=== PATIENT | male | born 1955 | race Caucasian/White ===

== ENCOUNTER 2020-08-31 16:36 | Emergency (ER) | payer OTHER, SELFPAY ==
[2020-08-31 16:46] VITALS: BP 140/76; PULSE 106; RESP 20; TEMP 36.8; O2SAT 98
--- NOTE | 2020-08-31 16:49 | ED.GENADULT ---
HPI - General Adult General Chief complaint: Extremity Problem,Nontraumatic Stated complaint: big toe pain Time Seen by Provider: 08/31/20 16:49 Source: patient and RN notes reviewed Mode of arrival: ambulatory Limitations: no limitations History of Present Illness HPI narrative: 65-year-old male presents with complaints of pain to RT great toe for the past 21 days. Pain has increased over the past 2-3 days and increases with long periods of activity. Haile says LT great toe initially had pain 2 months ago in which he has a work-up that included a Negative uric acid. No treatment. Denies injury. No swelling. Denies history of CHF, DVT, PE, or gout. Hurts to bear weight. Denies radiating pain. No numbness, tingling, or loss of mobility. Exacerbating factor applying weight. Denies inability to bear weight. Denies drainage, discoloration, or suspect foreign body. Denies fever or chills. Denies large intake of meats, seafood, or alcoholic beverages). The patient reports he have not been diagnosed with COVID-19. The patient reports he is not waiting for the results of a COVID-19 lab test. The patient reports he do not have fever, chills, weakness, or fatigue. The patient reports he do not have a new or worsening cough or shortness of breath. Denies chest pain. The patient reports he do not have any rhinorrhea, congestion, loss of taste, sore throat, nausea, vomiting, abdominal pain, and diarrhea. Tolerating po intake well. Recent traveled to [facility]. Denies concerns for COVID-19 or exposures been home with limited outdoor exposure except for essential household needs, work, and return home. At this time, patient is not suspected of having COVID-19. Some parts of this dictation were generated by voice recognition software and may contain typographical and/or grammatical inaccuracies. Related Data Home Medications Medication Instructions Recorded Confirmed canagliflozin [Invokana] 300 mg PO QAM 11/19/19 11/24/19 enalapril maleate 10 mg PO QAM 11/19/19 08/31/20 glimepiride 4 mg PO QAM 11/19/19 08/31/20 omeprazole 20 mg PO QAM 11/19/19 08/31/20 simvastatin 40 mg PO QAM 11/19/19 08/31/20 sitagliptin-metformin [Janumet XR] 1 tablet PO BID 11/19/19 08/31/20 tadalafil 10 mg PO DAILY PRN 11/19/19 08/31/20 Allergies Allergy/AdvReac Type Severity Reaction Status Date / Time No Known Allergies Allergy Verified 08/31/20 16:39 Review of Systems Review of Systems: Narrative: CONSTITUTIONAL: Denies fever, chills, sweats. EYES: Denies visual changes, redness, discharge. ENT: Denies rhinorrhea, congestion, sore throat, otalgia. CARDIOVASCULAR: Denies chest pain, palpitations, edema. RESPIRATORY: Denies dyspnea, wheezing, cough. GASTROINTESTINAL: Denies abdominal pain, nausea, vomiting, diarrhea. GENITOURINARY: Denies dysuria, hematuria, abnormal discharge. SKIN: Denies rash or itching. MUSCULOSKELETAL: Denies acute back pain or myalgia. Complains of pain to RT great toe. Denies drainage. NEUROLOGIC: Denies numbness or focal weakness. PSYCHIATRIC: Denies anxiety or depression. All systems reviewed & are unremarkable except as noted in HPI and below PMFSH Past Medical History Medical History (Updated 09/01/20 @ 00:00 by [facility] Wanda) Diabetes GERD (gastroesophageal reflux disease) H/O prostate cancer Received radiation Hyperlipidemia Hypertension Surgical History Surgical History (Updated 08/31/20 @ 16:59 by CANDI Rivera) History of prostate surgery Due to prostate cancer Family History Family History (Updated 08/31/20 @ 17:00 by CANDI Rivera) Father , at 70 Cerebrovascular accident Mother , at 93 Old age Social History Social History (Updated 08/31/20 @ 17:02 by CANDI Rivera) Smoking packs per day: 2 Smoking cigarettes per day: 40.0 Years smoked: 20 Smoking pack-years: 40.00 Smoking status: Current every day smo
[2020-08-31] MEDS: KETOROLAC (*BKC) 60 MG/2 ML VIAL IM (17:07)
== END 2020-08-31 17:23 | disposition home or self-care (01) ==
PROVIDERS: Emergency Provider Nurse Practitioner Family; PCP Emergency Medicine
DX: M25.571 Pain in right ankle and joints of right foot (principal); F17.210 Nicotine dependence, cigarettes, uncomplicated; E11.9 Type 2 diabetes mellitus without complications; K21.9 Gastro-esophageal reflux disease without esophagitis; E78.5 Hyperlipidemia, unspecified; I10 Essential (primary) hypertension; Z85.46 Personal history of malignant neoplasm of prostate
CPT/HCPCS: 96372; 99213; G0463; J1885

== ENCOUNTER 2021-01-23 13:10 | Outpatient (CLI) | payer OTHER, SELFPAY ==
--- NOTE | ~2021-01-23 | US_ITS ---
EXAMINATION: US art doppler w keren FLORES EXAM DATE: 01/23/2021 14:11 INDICATION: Peripheral arterial disease. TECHNIQUE: Segmental pressures and plethysmographic and Doppler waveforms of the brachial and lower e xtremity arteries were obtained. There is no prior study for comparison. FINDINGS: Right and left brachial artery pressures of 138 mm Hg and 130 mm Hg, respectively, are concordant (no rmal difference <= 30 mmHg). RIGHT LEG: The ankle-brachial index (GUSTAVO) is 0.74 (normal >= 0.9-1). The lower extremity ratios, segmental pressure gradients as follows; Proximal superficial femoral artery:- Could not obtain ( mmHg). Distal superficial femoral artery: ----- 1.01 (140 mmHg). Popliteal: 0.76 (105 mmHg). Dorsalis pedis: 0.74 (102 mmHg). Posterior tibial: 0.72 (100 mmHg). (Normal gradients <= 20-30 mmHg between adjacent levels on the same leg or the same levels on the two legs). Arterial waveforms are monophasic. LEFT LEG: The ankle-brachial index (GUSTAVO) is 0.80 (normal >= 0.9-1). The lower extremity ratios, segmental pressure gradients as follows; Proximal superficial femoral artery:- 1.20 (165 mmHg). Distal superficial femoral artery: ----- 1.09 (150 mmHg). Popliteal: 0.91 (125 mmHg). Dorsalis pedis: 0.76 (105 mmHg). Posterior tibial: 0.80 (111 mmHg). (Normal gradients <= 20-30 mmHg between adjacent levels on the same leg or the same levels on the two legs). Arterial waveforms are monophasic. IMPRESSION: 1. Right ankle-brachial index 0.74, mildly decreased. 2. Left ankle-brachial index 0.80, mildly decreased. 3. Segmental pressures as above. Reviewed, dictated and finalized at location B. [employer]
== END 2021-01-23 13:11 | disposition home or self-care (01) ==
LOC: CHSIMG 13:12
PROVIDERS: PCP Emergency Medicine; Visit Provider Podiatrist Foot & Ankle Surgery
DX: I73.9 Peripheral vascular disease, unspecified (principal)
CPT/HCPCS: 93923

== ENCOUNTER → 2021-03-09 12:50 | Outpatient (CLI) | payer OTHER, SELFPAY ==
--- NOTE | ~2021-03-09 | CT_ITS ---
EXAMINATION: CT lung screening DATE: 03/09/2021 13:08 INDICATION: History of nicotine dependence. Screening for malignant neoplasm. TECHNIQUE: Computed tomography (CT) of the chest was performed without intravenous contrast. The dose -length product was 109.87 mGy-cm. Automated exposure control and iterative reconstruction technique were employed. COMPARISON: CT dated 08/14/2019 FINDINGS: Stable partially calcified 1.5 cm right lower lobe nodule and 1.1 cm lingular nodule. No si gnificant pleural or pericardial effusion. Heart size is normal. No significant vascular abnormality. No thoracic lymphadenopathy. There is coronary atherosclerosis. There is also a stable 4 mm lingular nodule, image 85. No new pulmonary nodules or masses. IMPRESSION: 1. Lung-RADS category 2: Benign appearance or behavior. Continue annual screening with noncontrast lo w-dose chest CT in 12 months. Reviewed, dictated and finalized at location A. IMPRESSION: 1. Lung-RADS category 2: Benign appearance or behavior. Continue annual screeni ng with noncontrast low-dose chest CT in 12 months.
== END ==
PROVIDERS: PCP Emergency Medicine; Visit Provider Emergency Medicine
DX: Z12.2 Encounter for screening for malignant neoplasm of respiratory organs (principal); Z87.891 Personal history of nicotine dependence
CPT/HCPCS: 71271

== ENCOUNTER 2021-03-10 17:19 | Emergency (ER) | payer OTHER, SELFPAY ==
--- NOTE | 2021-03-10 19:07 | PC.NURSE ---
no answer when called for triage assess at 1554 and 1902.
== END 2021-03-10 19:22 | disposition left against medical advice (07) ==
PROVIDERS: PCP Emergency Medicine
DX: Z53.21 Procedure and treatment not carried out due to patient leaving prior to being seen by health care provider (principal)
CPT/HCPCS: 99199

== ENCOUNTER → 2021-03-21 02:17 | Outpatient (CLI) | payer OTHER, SELFPAY ==
[2021-03-21 19:24] LABS: SARS-CoV-2 RNA PCR Negative
== END ==
PROVIDERS: PCP Emergency Medicine; Visit Provider Podiatrist Foot & Ankle Surgery
DX: Z01.812 Encounter for preprocedural laboratory examination (principal); Z20.822 Contact with and (suspected) exposure to COVID-19
CPT/HCPCS: C9803; U0003; U0005

== ENCOUNTER 2021-03-24 02:43 | Day surgery (SDC) | payer OTHER, SELFPAY ==
[2021-03-17 13:21] VITALS: BMI 24.3
[2021-03-24] VITALS (8 sets, daily range): BP systolic 111–131; BP diastolic 61–83; PULSE 80–103; RESP 12–18; TEMP 36.5–36.8; O2SAT 95–100
--- NOTE | 2021-03-24 07:34 | WPDHPUPDATE1 ---
History and Physical Update Update Date/Time: 03/24/21 07:34 History and Physical has been reviewed, including an updated exam of the patient. There are NO changes in the patient's condition. Risks, benefits, and alternatives have been discussed and questions answered. Patient agrees to proceed with procedure.
[2021-03-24] MEDS: LACTATED RINGERS 1,000 ML 30 ML IV CONT ×2 (10:23→13:13)
[2021-03-24 10:25] LABS: Glucose Point of Care 135 (65-105)
--- NOTE | 2021-03-24 10:29 | SUR.PREOP ---
DRESSING TO RIGHT FOOT REMAINS IN PLACE
--- NOTE | 2021-03-24 11:11 | WPDANESEPPF ---
Anes - Initial Pre Proc Eval Procedure: Operation Date: 03/24/21 12:00 Proposed Procedures p Partial Amputation Of The Right Hallux - Steve Burnett JR, MD Date/Time: 03/24/21 11:11 Surgeon: Steve Burnett JR, MD Pre Op Diagnosis: gangrene right hallux Patient Data Age: 66 Gender: M Height: 5 ft 9 in Weight: 72.1 kg Last Vital Signs Temp 36.5 C 03/24/21 10:08 Pulse 103 H 03/24/21 10:08 Resp 18 03/24/21 10:08 BP 123/71 03/24/21 10:08 Pulse Ox 99 03/24/21 10:08 Allergies Allergy/AdvReac Type Severity Reaction Status Date / Time No Known Allergies Allergy Verified 03/17/21 13:19 Home Medications Medication Instructions Recorded Confirmed Type canagliflozin [Invokana] 300 mg PO QAM 11/19/19 03/17/21 History enalapril maleate 10 mg PO QAM 11/19/19 03/17/21 History glimepiride 4 mg PO QAM 11/19/19 03/17/21 History simvastatin 40 mg PO QAM 11/19/19 03/17/21 History sitagliptin-metformin [Janumet XR] 1 tablet PO BID 11/19/19 03/17/21 History tadalafil 10 mg PO DAILY PRN 11/19/19 03/17/21 History aspirin 81 mg PO DAILY 03/17/21 03/17/21 History clopidogrel 75 mg PO DAILY 03/17/21 03/17/21 History Laboratory Tests 03/24/21 10:21 POC Capillary Glucose 135 mg/dl H mg/dl (65-105) Patient hx anesthesia problems: none Family hx anesthesia problems: none PMFSH Past Medical History Medical History Diabetes GERD (gastroesophageal reflux disease) H/O prostate cancer Received radiation Hyperlipidemia Hypertension Surgical History Surgical History History of prostate surgery Due to prostate cancer Family History Family History Father , at 70 Cerebrovascular accident Mother , at 93 Old age Social History Social History Smoking packs per day: 2 Smoking cigarettes per day: 40.0 Years smoked: 25 Smoking pack-years: 50.00 Smoking status: Current every day smoker Tobacco type: cigarettes Second hand tobacco smoke exposure: Yes Alcohol intake: never Substance use: never Substance use type: does not use Living arrangements: with family Gender identity (if verbalized by the patient): Male Spiritual care concerns: No Anes - Eval Final PreProcedure Day of Procedure 03/24/21 11:11 Patient weight: normal Heart: regular rate and rhythm Lungs: clear to auscultation Airway: Mallampati scale class II Neurological: alert and oriented Last oral intake: >/= 8 hours ASA classification: III Emergent: no Anesthetic plan: proceed Anesthesia type and monitoring: general LMA and standard monitoring Informed Consent: The patient's anesthetic plan and its attendant risks and benefits were discussed with the patient/family/POA. Questions were solicited and answers provided to the satisfaction of the patient/family/POA.
[2021-03-24] MEDS: fentaNYL CITRATE INJ (*CRX) 100 MCG/2 ML VIAL 50 MCG IV PUSH (11:16)
[2021-03-24] MEDS: ceFAZolin 2 GM/D5W 50 ML 2 GM/50 ML BAG IVPB (11:53)
[2021-03-24] MEDS: LIDOCAINE HCL 2% PF INJ 5 ML VIAL 20 ML INFILTRATE (12:31)
--- NOTE | 2021-03-24 12:45 | P.OP_ITS ---
Procedure Note - Detailed Date of procedure: 03/24/21 Pre-op diagnosis: gangrene right hallux Post-op diagnosis: same Procedure performed: Partial amputation right hallux Anesthesia: GETA and local Surgeon: Steve Burnett JR, DPM Estimated blood loss (mL): 1 Drains: No Packing: No Pathology: yes (Distal right hallux sent for gross and histo) Complications: No immediate complications Condition: stable Disposition: same day Findings: Under mild sedation, the patient was brought to the operating room, placed on the operating table in the supine position. A pneumatic ankle tourniquet was placed about the patient's ankle. Following general anesthesia, I performed a proximal Restrepo Block about the proximal first metatarsal. The foot was then scrubbed, prepped, and draped in the usual aseptic manner. An Esmarch bandage was then used to examine the patient's foot and pneumatic ankle tourniquet was then inflated. Surgery began in the following manner. Attention was directed to the dorsal distal aspect of the hallux where the patient had black necrotic malodorous gangrenous wet tissue noted. Two convex converging incisions were made about the interphalangeal joint of the hallux proximal to the gangrenous tissue with the plantar flap extending slightly distal. The incision was continued deep down through the subcutaneous tissues using sharp and blunt dissection. All bleeders were cauterized as necessary. The distal hallux was disarticulated at the interphalangeal joint and sent for gross and histopathology. Next, I used a sagittal bone saw to resect the distal half of the proximal phalanx. The remaining bone and tissue was healthy and bleeding. The wound site was then flushed with copious amounts of sterile saline. Next, the periosteum and capsular structures overlying the distal hallux was reapproximated with 4-0 Vicryl. Next, the skin was reapproximated and coapted utilizing 4-0 Prolene in simple interrupted suture fashion technique. Upon completion of the procedure, the incision was dressed with Adaptic, 4 x 4's, Kerlix, and Coban. The pneumatic ankle tourniquet was then deflated and a prompt hyperemic response noted to all remaining digits of the f oot and the distal aspect of the stump of the partially amputated hallux. A surgical shoe was then applied. The patient did very well with the procedure and the anesthesia. The patient was transferred to the recovery room with vital signs stable and vascular status intact to all remaining toes of the affected foot. Following a period of postoperative monitoring, the patient will be discharged home on the following written and oral postoperative instructions: 1. Keep the dressing clean, dry, and intact. Use a cast protector bag with showers. 2. The patient should use a surgical shoe for ambulation postoperatively. 3. The patient should be on bedrest with bathroom privileges and elevate the affected foot when at rest. 4. The patient to contact Dr. Burnett for all postop care and if any problems arise. 5. Prescriptions were written for Percocet 5/325 dispensed 40 to be taken 1 p.o. q.4 to 6 hours as needed for severe pain.
== END 2021-03-24 14:22 | disposition home or self-care (01) ==
PROVIDERS: PCP Emergency Medicine; Visit Provider Podiatrist Foot & Ankle Surgery
PROC: (CPT 28825; principal; 2021-03-24 12:00)
DX: E11.52 Type 2 diabetes mellitus with diabetic peripheral angiopathy with gangrene (principal); I96 Gangrene, not elsewhere classified; K21.9 Gastro-esophageal reflux disease without esophagitis; I10 Essential (primary) hypertension; E78.5 Hyperlipidemia, unspecified; Z85.46 Personal history of malignant neoplasm of prostate; Z92.3 Personal history of irradiation; F17.210 Nicotine dependence, cigarettes, uncomplicated; Z79.84 Long term (current) use of oral hypoglycemic drugs; Z79.02 Long term (current) use of antithrombotics/antiplatelets; Z79.82 Long term (current) use of aspirin
CPT/HCPCS: 28825; 82948; 88305; 88311; C9803; J0690; J2250; J2405; J2704; J3010; J7120; U0003; U0005

== ENCOUNTER 2021-03-24 21:53 | Emergency (ER) | payer OTHER, SELFPAY ==
[2021-03-24 22:47] VITALS: BP 132/86; PULSE 98; RESP 20; TEMP 36.4; O2SAT 98
== END 2021-03-25 01:09 | disposition left against medical advice (07) ==
LOC: ANHED 03-25 00:59
PROVIDERS: PCP Emergency Medicine
DX: L98.9 Disorder of the skin and subcutaneous tissue, unspecified (principal)
CPT/HCPCS: 99199

== ENCOUNTER 2021-03-25 01:47 | Emergency (ER) | payer OTHER, SELFPAY ==
[2021-03-25 01:48] VITALS: BP 119/68; PULSE 91; RESP 20; TEMP 36.7; O2SAT 99
[2021-03-25] MEDS: oxyCODONE/ACETAMINOPHEN (*CRX) 5-325 MG TABLET 1 TABLET PO (05:15)
[2021-03-25 05:20] VITALS: BP 143/70; PULSE 81; RESP 16; O2SAT 98
--- NOTE | 2021-03-25 05:23 | ED.LOWEXIN ---
HPI - Extremity Injury (Lower) General Chief Complaint: Extremity Injury, Lower Stated Complaint: right foot pain Time Seen by Provider: 03/25/21 04:23 Source: patient Mode of arrival: ambulatory Limitations: no limitations History of Present Illness HPI Narrative: This is a 66 year old male with history of DM, hyperlipidemia, hypertension, PAD who presents for evaluation right foot pain s/p toe amputation POD 1. He had a partial amputation performed by Dr. Burnett yesterday afternoon. He states once his pain medication wore off he has been having severe pain to his right foot at site of incision. HE also reports some swelling. He has no numbness or tingling. It appears his surgeon thought he still had some pain medication left but he took his last dose yesterday. He denies any fever or chills. He had a stent placed in his right leg a week or so ago. Related Data Home Medications Medication Instructions Recorded Confirmed Invokana 300 mg PO QAM 11/19/19 03/17/21 Janumet XR 1 tablet PO BID 11/19/19 03/17/21 enalapril maleate 10 mg PO QAM 11/19/19 03/17/21 glimepiride 4 mg PO QAM 11/19/19 03/17/21 simvastatin 40 mg PO QAM 11/19/19 03/17/21 tadalafil 10 mg PO DAILY PRN 11/19/19 03/17/21 aspirin 81 mg PO DAILY 03/17/21 03/17/21 clopidogrel 75 mg PO DAILY 03/17/21 03/17/21 Allergies Allergy/AdvReac Type Severity Reaction Status Date / Time No Known Allergies Allergy Verified 03/17/21 13:19 Review of Systems Review of Systems: All systems reviewed & are unremarkable except as noted in HPI and below PMFSH Past Medical History Medical History Diabetes GERD (gastroesophageal reflux disease) H/O prostate cancer Received radiation Hyperlipidemia Hypertension Surgical History Surgical History History of prostate surgery Due to prostate cancer Family History Family History Father , at 70 Cerebrovascular accident Mother , at 93 Old age Social History Social History Smoking packs per day: 2 Smoking cigarettes per day: 40.0 Years smoked: 25 Smoking pack-years: 50.00 Smoking status: Current every day smoker Tobacco type: cigarettes Second hand tobacco smoke exposure: Yes Alcohol intake: never Substance use: never Substance use type: does not use Gender identity (if verbalized by the patient): Male Spiritual care concerns: No Exam Const: General: no acute distress and alert Orientation/consciousness: patient oriented x3 Eyes: EOM: EOMs intact bilaterally Resp: Effort & Inspection: normal respiratory effort Skin: General skin exam: normal color Rashes: no rashes Neuro: General: patient oriented x3, moves all extremities and CN's II-XI intact bilaterally Extrem: Other: right foot- no swelling, stitches intact, incision at site of right great toe amputation is intact. No drainage, no bleeding. good color, foot is warm , able to palpate right PT, doppler right DP. Psych: Mental Status: mental status grossly normal Affect: normal affect Course Reevaluation(s) Reevaluation #1: This seems to be postoperative pain. He will call surgeon on Saturday for additional pain medication Date: 03/25/21 Time: 05:28 Vital Signs Vital signs: Vital Signs Temperature 98.0 F 03/25/21 01:48 Pulse Rate 91 03/25/21 01:48 Respiratory Rate 20 03/25/21 01:48 Blood Pressure 119/68 03/25/21 01:48 Pulse Oximetry 99 03/25/21 01:48 Temperature 98.0 F 03/25/21 01:48 Pulse Rate 80 03/25/21 06:07 Respiratory Rate 16 03/25/21 06:07 Blood Pressure 143/80 H 03/25/21 06:07 Pulse Oximetry 100 03/25/21 06:07 Discharge Plan Discharge Clinical Impression: Post-operative pain Status post amputation of gre
[2021-03-25 06:07] VITALS: BP 143/80; PULSE 80; RESP 16; O2SAT 100
== END 2021-03-25 06:08 | disposition home or self-care (01) ==
PROVIDERS: Emergency Provider General Practice; PCP Emergency Medicine
DX: G89.18 Other acute postprocedural pain (principal); Z89.411 Acquired absence of right great toe; E78.5 Hyperlipidemia, unspecified; I10 Essential (primary) hypertension; E11.51 Type 2 diabetes mellitus with diabetic peripheral angiopathy without gangrene; K21.9 Gastro-esophageal reflux disease without esophagitis; F17.210 Nicotine dependence, cigarettes, uncomplicated; Z79.84 Long term (current) use of oral hypoglycemic drugs
CPT/HCPCS: 99283; A9270

== ENCOUNTER → 2022-06-08 15:04 | Outpatient (CLI) | payer BC, MEDICARE, SELFPAY ==
--- NOTE | ~2022-06-08 | CT_ITS ---
EXAMINATION: CT lung screening DATE: 06/08/2022 15:47 INDICATION: Nicotine dependence. Lung cancer screening. TECHNIQUE: Computed tomography (CT) of the chest was performed without intravenous contrast. The dose -length product was 107.82 mGy-cm. Automated exposure control and iterative reconstruction technique were employed. COMPARISON: CT dated 02/13/2017 FINDINGS: There are stable pulmonary nodules or including the right lower lobe measuring 1.4 x 1.3 cm compared with 1.4 x 1.3 cm on prior examination.. There is a lingular nodule measuring 1.3 x 1 cm co mpared with 1.3 x 1 cm on prior examination. No thoracic lymphadenopathy. No significant pleural or p ericardial effusion. Large right renal cyst. Nonobstructing 5 mm left renal stone. No endobronchial l esions. Calcified granuloma in the lingula unchanged. No new pulmonary nodules or masses no focal air space disease. No endobronchial lesions. IMPRESSION: 1. Lung-RADS category 2: Benign appearance or behavior. Continue annual screening with noncontrast lo w-dose chest CT in 12 months. Reviewed, dictated and finalized at location A. IMPRESSION: 1. Lung-RADS category 2: Benign appearance or behavior. Continue annual screeni ng with noncontrast low-dose chest CT in 12 months.
== END ==
PROVIDERS: PCP Emergency Medicine; Visit Provider Emergency Medicine
DX: Z12.2 Encounter for screening for malignant neoplasm of respiratory organs (principal); Z87.891 Personal history of nicotine dependence
CPT/HCPCS: 71271

== ENCOUNTER 2024-06-17 11:14 | Outpatient (CLI) | payer OTHER, SELFPAY ==
--- NOTE | ~2024-06-17 | CT_ITS ---
CT Scan of the Chest without Contrast: Clinical Indication: Lung cancer screening, nicotine dependence Technique: Contiguous sections were acquired throughout the chest without intravenous contrast. Dose reduction technique was used on this scan by utilizing automated exposure control and iterative recon struction technique. The dose-length product (DLP) was 75.76 mGy-cm. COMPARISON: 06/08/2022 Findings: There is no evidence of any significant mediastinal, hilar or axillary lymphadenopathy. The mediastin al soft tissues appear normal. There is no evidence of pleural or pericardial effusion. Large calcified right lower lobe granuloma present. Additional lingular granuloma present. Calcified left upper lobe granuloma present. Images through the upper abdomen reveal no abnormalities. Impression: Lung RADS 2: Benign appearance. 12 month follow-up screening CT advised. Reviewed, dictated and finalized at [facility]. Impression: Lung RADS 2: Benign appearance. 12 month follow-up screening CT advised.
== END 2024-06-17 11:15 ==
LOC: MICIMG 11:15
PROVIDERS: PCP Emergency Medicine; Visit Provider Emergency Medicine
DX: Z12.2 Encounter for screening for malignant neoplasm of respiratory organs (principal); Z87.891 Personal history of nicotine dependence
CPT/HCPCS: 71271

== ENCOUNTER 2024-08-07 02:58 | Day surgery (SDC) | payer OTHER, SELFPAY ==
[2024-07-28 11:56] VITALS: BMI 22.1
[2024-08-07 08:15] VITALS: BP 124/64; PULSE 86; RESP 18; TEMP 36.1; O2SAT 99
[2024-08-07] MEDS: LACTATED RINGERS 1,000 ML 150 ML IV CONT (08:25)
[2024-08-07 08:29] LABS: Glucose Point of Care 148 mg/dl (65-105)
--- NOTE | 2024-08-07 08:36 | WPDANESEPPF ---
Anes - Initial Pre Proc Eval Procedure: Operation Date: 08/07/24 09:30 Proposed Procedures p Esophagogastroduodenoscopy - Jose Watkins MD Date/Time: 08/07/24 08:36 Surgeon: Jose Watkins MD Pre Op Diagnosis: Lozano's Patient Data Age: 69 Gender: M Height: 1.75 m Weight: 65.7 kg Last Vital Signs Temp 36.1 C L 08/07/24 08:15 Pulse 86 08/07/24 08:15 Resp 18 08/07/24 08:15 BP 124/64 08/07/24 08:15 Pulse Ox 99 08/07/24 08:15 O2 Del Method Room Air 08/07/24 08:15 Allergies Allergy/AdvReac Type Severity Reaction Status Date / Time No Known Allergies Allergy Verified 08/07/24 08:13 Home Medications Medication Instructions Recorded Confirmed Type canagliflozin 300 mg tablet 300 mg PO QAM 11/19/19 08/07/24 History (Invokana) enalapril maleate 10 mg tablet 10 mg PO QAM 11/19/19 08/07/24 History glimepiride 4 mg tablet 4 mg PO QAM 11/19/19 08/07/24 History simvastatin 40 mg tablet 40 mg PO QAM 11/19/19 08/07/24 History sitagliptin phos 50 mg-metformin 1 tablet PO BID 11/19/19 08/07/24 History ER 1,000 mg tablet,extend rel 24h mp (Janumet XR) tadalafil 10 mg tablet 10 mg PO DAILY PRN Erectile 11/19/19 08/07/24 History Dysfunction clopidogrel 75 mg tablet 75 mg PO DAILY 03/17/21 08/07/24 History dapagliflozin propanediol 10 mg 10 mg PO DAILY 07/17/24 08/07/24 History tablet (Farxiga) tirzepatide 5 mg/0.5 mL 5 mg subcut WEEKLY 07/17/24 08/07/24 History subcutaneous pen injector (Dennisundonavanro) aspirin 81 mg tablet,delayed 81 mg PO DAILY 07/28/24 08/07/24 History release (Adult Low Dose Aspirin) Laboratory Tests 08/07/24 08:23 POC Capillary Glucose 148 H mg/dl (65-105) Patient hx anesthesia problems: none Family hx anesthesia problems: none Results Review: All pre-operative results and documents have been reviewed as part of the pre-operative evaluation. [facility] Past Medical History Medical History Diabetes GERD (gastroesophageal reflux disease) H/O prostate cancer Received radiation Hyperlipidemia Hypertension Surgical History Surgical History History of prostate surgery Due to prostate cancer Family History Family History Father , at 70 Cerebrovascular accident Mother , at 93 Old age Social History Social History Smoking packs per day: 2 Smoking cigarettes per day: 40.0 Years smoked: 25 Smoking pack-years: 50.00 Smoking status: Current every day smoker Tobacco type: cigarettes Second hand tobacco smoke exposure: Yes Alcohol intake: never Substance use: never Substance use type: does not use Living arrangements: alone Occupation/Education: occupation Gender identity (if verbalized by the patient): Male Spiritual care concerns: No Anes - Eval Final PreProcedure Day of Procedure 08/07/24 08:36 Patient weight: normal Heart: regular rate and rhythm Lungs: decreased breath sounds Airway: Mallampati scale class II Neurological: alert and oriented Last oral intake: >/= 8 hours ASA classification: III Emergent: no Anesthetic plan: proceed Anesthesia type and monitoring: general GIVS and standard monitoring Results Review: All pre-operative results and documents have been reviewed as part of the pre-operative evaluation. Informed Consent: The patient's anesthetic plan and its attendant risks and benefits were discussed with the patient/family/POA. Questions were solicited and answers provided to the satisfaction of the patient/family/POA.
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
[2024-08-07 08:49] VITALS: BP 156/91; PULSE 98; RESP 18; O2SAT 99
[2024-08-07 08:59] VITALS: BP 129/75; PULSE 84; RESP 18; O2SAT 97
[2024-08-07 09:08] VITALS: BP 154/73; PULSE 83; RESP 18; O2SAT 99
== END 2024-08-07 09:39 | disposition home or self-care (01) ==
PROVIDERS: PCP Emergency Medicine; Visit Provider Internal Medicine Gastroenterology
PROC: 0DJ08ZZ Inspection of Upper Intestinal Tract, Via Natural or Artificial Opening Endoscopic (ICD-10-PCS; CPT 43235; principal; 2024-08-07 09:30)
DX: K22.70 Barrett's esophagus without dysplasia (principal); K21.9 Gastro-esophageal reflux disease without esophagitis; Z85.46 Personal history of malignant neoplasm of prostate; E11.9 Type 2 diabetes mellitus without complications; E78.5 Hyperlipidemia, unspecified; I10 Essential (primary) hypertension; F17.210 Nicotine dependence, cigarettes, uncomplicated
CPT/HCPCS: 43239; 82948; 88305; J2704; J7120

== ENCOUNTER 2025-07-14 11:20 | Outpatient (CLI) | payer OTHER, SELFPAY ==
--- NOTE | ~2025-07-14 | CT_ITS ---
EXAMINATION: CT diagnostic chest wo con DATE: 07/14/2025 12:20 INDICATION: Nicotine dependence TECHNIQUE: Computed tomography (CT) of the chest was performed without intravenous contrast. The dose-length product was 78.08 mGy-cm. COMPARISON: Chest CTs from 06/17/2024, 06/08/2022 and 03/09/2021 FINDINGS: No enlarged axillary, mediastinal or hilar lymph nodes. Heart is unenlarged. There are coronary artery calcifications. 3 mm nonobstructing left renal stone. Thoracic aorta is partially calcified but is not aneurysmal. Tracheobronchial tree is patent. No pneumothorax. No pleural effusion. Stable 1.2 cm pulmonary nodule in the lingula. Stable 4 mm pulmonary nodule in the lingula. Stable 1.4 cm partially calcified pulmonary nodule in the right lower lobe. Bones appear osteopenic. Multilevel degenerative change in the visualized spine similar to the prior studies. IMPRESSION: 1. Lung-RADS category 2: Benign appearance or behavior. Continue annual screening with noncontrast low-dose chest CT in 12 months. Reviewed, dictated and finalized at location [facility]. IMPRESSION: 1. Lung-RADS category 2: Benign appearance or behavior. Continue annual screeni ng with noncontrast low-dose chest CT in 12 months.
== END 2025-07-14 11:21 | disposition home or self-care (01) ==
LOC: MICIMG 11:22
PROVIDERS: PCP Emergency Medicine; Visit Provider Emergency Medicine
DX: Z12.2 Encounter for screening for malignant neoplasm of respiratory organs (principal); Z87.891 Personal history of nicotine dependence
CPT/HCPCS: 71250